=== PATIENT | male | born 1990 | race American Indian/Alaskan Native ===

== ENCOUNTER 2018-10-25 05:38 | Emergency (ER) | payer BC, OTHER ==
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
[2018-10-25] MEDS ORDERED: FLEXERIL PO ONE (07:41)
[2018-10-25] MEDS ORDERED: NORCO 5/325 PO ONE (07:41)
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
[2018-10-25] MEDS ORDERED: DELTASONE PO NR (10:00)
[2018-10-25 10:10] LABS: Hematocrit 46.5 % (35.5-45.6); Hemoglobin 15.9 gm/dl (11.8-15.2); Mean Corpuscular HGB Conc 34 % (32-34); Mean Corpuscular Volume 84 fl (84-94); Platelet Count 158 K/mm3 (140-440); Red Blood Count 5.56 M/mm3 (3.65-5.03); Red Cell Distribution Width 14.3 % (13.2-15.2)
[2018-10-25 10:30] LABS: BUN/Creatinine Ratio 17; Blood Urea Nitrogen 15 mg/dL (9-20); Calcium 9.2 mg/dL (8.4-10.2)
[2018-10-25 10:31] LABS: Hemolysis Index 28
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
[2018-10-25] MEDS ORDERED: LIDOCAINE VISCOUS 2% PO ONE (11:35)
[2018-10-25] MEDS ORDERED: MYLICON PO ONE (11:35)
[2018-10-25] MEDS ORDERED: ALUM-MAG HYDROX-SIMETH 200-200-20MG/5ML PO ONE (11:35)
[2018-10-25 11:38] VITALS: BP 139/100
== END 2018-10-25 12:14 | disposition home or self-care (01) ==
LOC: ED 05:38
DX: S16.1XXA Strain of muscle, fascia and tendon at neck level, initial encounter (principal); M79.18 Myalgia, other site; R05 Cough; H91.90 Unspecified hearing loss, unspecified ear; K30 Functional dyspepsia; Z79.899 Other long term (current) drug therapy; V49.59XA Passenger injured in collision with other motor vehicles in traffic accident, initial encounter; Y93.89 Activity, other specified; Y92.89 Other specified places as the place of occurrence of the external cause; Y99.8 Other external cause status
CPT/HCPCS: 36415; 71046; 71260; 72040; 80048; 85027; 99285; J7512; Q9967